=== PATIENT | female | born 1985 | race Caucasian/White ===

== ENCOUNTER → 2016-10-17 | Outpatient (CLI) | payer OTHER ==
[~2016-10-17] MED LIST: ACET50TA PO; B COCAP PO; DIPH50CA PO; DOCU10ELUD OR; IBUP600T26 OR; MOM30SS OR; OMEG100011 PO; PRENTAB66 PO; VICO5TAB PO
[2016-10-17 17:23] LABS: BASO % 0.3 % (0.0-1.0); EOS # 0.1 K/mm3 (0.0-0.50); EOS % 1.5 % (0.0-3.0); LARGE UNSTAINED CELL # 0.1 K/mm3 (0.0-0.4); LARGE UNSTAINED CELL % 2.1 % (0.0-4.0); LYMPH # 1.2 K/mm3 (1.5-4.5); LYMPH % 18.4 % (24.0-44.0); MEAN CORPUSCULAR HEMOGLOBIN 31.6 pg (27.0-33.0); MEAN CORPUSCULAR VOLUME 90.5 fl (80.0-96.0); MONO # 0.3 K/mm3 (0.0-0.8); NEUTROPHILS # 4.7 K/mm3 (1.8-7.7); NEUTROPHILS % 72.8 % (36.0-66.0); PLATELET COUNT, AUTOMATED 136 k/mm3 (150-450); RED CELL DISTRIBUTION WIDTH 12.1 % (11.5-14.5); WHITE BLOOD COUNT 6.5 K/mm3 (4.0-10.0)
[2016-10-18 10:20] LABS: HBsAg Prenatal NEGATIVE (NEGATIVE)
== END ==
LOC: M SMT 13:54
PROVIDERS: ATTEND Advanced Practice Midwife
DX: Z34.81 Encounter for supervision of other normal pregnancy, first trimester (principal)

== ENCOUNTER → 2016-12-04 | Outpatient (CLI) | payer OTHER ==
--- NOTE | 2016-12-04 13:07 | REP ---
Obstetric ultrasound for anatomy: There is a single intrauterine gestation. position is variable. There is motion. heart rate is 160 beats per minute. The placenta is anterior. There is no placenta previa or abruptio. The placenta demonstrates grade 0 maturity. Subjectively the amniotic fluid volume is normal. The cervix measures 3.2 cm length. The maternal adnexa and cul-de-sac are unremarkable. By the today's ultrasound the gestational age is 19 weeks 3 days with an JULY of 04/27/2017. By LMP gestational age is 19 weeks 0 days. weight is 308 grams (0 pounds, 10 ounces). This is the 74th percentile for 19 weeks 0 days. The following anatomic structures are identified and are unremarkable: cranium, choroid plexus, cavum septum pellucidum, cerebellum, cisterna magna, facial profile, lungs, four-chamber heart, cardiac right and left ventricular outflow tracts, diaphragm, stomach, cord insertion, three-vessel cord, kidneys, bladder, spine and upper lower extremities. No anomalies are identified. Signed by Carlos Pop MD 12/04/2016 12:58 P
== END ==
LOC: M SMT 11:18
PROVIDERS: ATTEND Specialist
DX: Z34.82 Encounter for supervision of other normal pregnancy, second trimester (principal); Z36 Encounter for antenatal screening of mother; Z3A.19 19 weeks gestation of pregnancy

== ENCOUNTER → 2017-01-22 | Outpatient (CLI) | payer MEDICAID, OTHER ==
[2017-01-22 14:20] LABS: MEAN CORPUSCULAR HEMOGLOBIN 32.7 pg (27.0-33.0); MEAN CORPUSCULAR HGB CONC 34.6 g/dl (32.0-36.5); MEAN CORPUSCULAR VOLUME 94.6 fl (80.0-96.0); RED CELL DISTRIBUTION WIDTH 13.1 % (11.5-14.5); WHITE BLOOD COUNT 6.2 K/mm3 (4.0-10.0)
== END ==
LOC: M SMT 10:45
PROVIDERS: ATTEND Obstetrics & Gynecology
DX: Z34.82 Encounter for supervision of other normal pregnancy, second trimester (principal); Z36 Encounter for antenatal screening of mother; Z3A.00 Weeks of gestation of pregnancy not specified

== ENCOUNTER → 2017-04-03 | Outpatient (CLI) | payer OTHER, MEDICAID ==
[2017-04-03 12:56] LABS: MEAN CORPUSCULAR HEMOGLOBIN 31.8 pg (27.0-33.0); MEAN CORPUSCULAR HGB CONC 33.3 g/dl (32.0-36.5); MEAN CORPUSCULAR VOLUME 95.5 fl (80.0-96.0); RED CELL DISTRIBUTION WIDTH 13.4 % (11.5-14.5); WHITE BLOOD COUNT 10.2 10^3/uL (4.0-10.0)
[2017-04-03 13:03] LABS: PLATELET COUNT, AUTOMATED 96 10^3/uL (150-450)
[2017-04-03 13:05] LABS: PLATELET F 96
== END ==
LOC: M SMT 10:16
PROVIDERS: ATTEND Obstetrics & Gynecology
DX: Z34.83 Encounter for supervision of other normal pregnancy, third trimester (principal)

== ENCOUNTER 2017-05-02 22:51 | Inpatient (IN) | payer MEDICAID, OTHER ==
[~2017-05-02] VITALS: Ht 165.1 cm; Wt 73.0 kg
[2017-05-02] MEDS ORDERED: OXYTOCIN 30 UNITS IN 0.9% NaCl 500ML IV BAG (J2590) As Ordered ONE (22:56)
[2017-05-02 22:59] VITALS: BP 108/60
[2017-05-02 23:22] LABS: MEAN CORPUSCULAR HEMOGLOBIN 31.8 pg (27.0-33.0); MEAN CORPUSCULAR HGB CONC 34.8 g/dl (32.0-36.5); MEAN CORPUSCULAR VOLUME 91.3 fl (80.0-96.0); RED CELL DISTRIBUTION WIDTH 13.6 % (11.5-14.5); WHITE BLOOD COUNT 7.5 10^3/uL (4.0-10.0)
[2017-05-02 23:43] LABS: PLATELET COUNT, AUTOMATED 79 10^3/uL (150-450)
[2017-05-02 23:44] LABS: IMMATURE PLATELET FRACTION % 16.7 % (0.0-9.6)
[2017-05-03] VITALS (7 sets, daily range): BP systolic 109–128; BP diastolic 57–75
[2017-05-03 01:20] LABS: CORD GAS ABE A -0.7; CORD GAS HCO3 A 25.6 MEQ/L; CORD GAS PH A 7.345 UNITS; CORD GAS PO2 A 19.5 mmHg; CORD GAS TCO2 A 27.1 MEQ/L
[2017-05-03 01:21] LABS: CORD GAS O2 SAT A 41.3 %; CORD GAS SBC A 22.4 MEQ/L
[2017-05-03 01:22] LABS: CORD GAS PCO2 V 36.7 mmHg; CORD GAS PH V 7.405 UNITS
[2017-05-03 01:23] LABS: CORD GAS ABE V -1.6; CORD GAS HCO3 V 22.5 MEQ/L; CORD GAS O2 SAT V 72.4 %; CORD GAS PO2 V 27.4 mmHg; CORD GAS SBC V 22.4 MEQ/L; CORD GAS TCO2 V 23.6 MEQ/L
[2017-05-03] MEDS ORDERED: OXYTOCIN DRIP 30 UNITS in APPROPRIATE DILUENT 1 EA IV SCH (01:33)
[2017-05-03] MEDS ORDERED: LIDOCAINE 1% MDV INJ 50 ML VIAL INFIL ONE (01:45)
[2017-05-03] MEDS ORDERED: METHYLERGONOVINE MALEATE 0.2 MG TAB PO PRN (01:45)
[2017-05-03] MEDS ORDERED: ANUSOL HC CREAM 30GM TOP PRN (01:45)
[2017-05-03] MEDS ORDERED: MEASLES,MUMPS,RUBELLA VACCINE INJ (MMR-II) (90707) SC SCH (01:45)
[2017-05-03] MEDS ORDERED: MOM 30ML SUSPENSION UDC PO PRN (01:45)
[2017-05-03] MEDS ORDERED: DIBUCAINE 1% OINTMENT 30GM TOP PRN (01:45)
[2017-05-03] MEDS ORDERED: ACETAMINOPHEN 500 MG TAB PO PRN (01:45)
[2017-05-03] MEDS ORDERED: DOCUSATE SODIUM 100 MG CAP PO PRN (01:45)
[2017-05-03] MEDS ORDERED: RHOGAM 300 MCG (1500 IU) INJ (J2790) IM SCH (01:45)
[2017-05-03] MEDS ORDERED: IBUPROFEN 800 MG TAB PO PRN (01:45)
[2017-05-03] MEDS ORDERED: PERCOCET 5MG/325MG TAB PO PRN (07:00)
[2017-05-03] MEDS ORDERED: oxyCODONE 10 MG CR TAB PO ONE (08:00)
[2017-05-03] MEDS: PRENATAL VITAMINS CHEWABLE TABLET PO SCH (08:19)
--- NOTE | 2017-05-03 08:45 | HPE ---
DATE OF ADMISSION: 05/02/2017 REASON FOR ADMISSION: Labor. HISTORY OF THE PRESENT ILLNESS: Mrs. Sanford is a 31-year-old 3, para 2 who presents at 40 weeks 2 days estimated gestational age by last menstrual period, confirmed by first trimester ultrasound, with complaints of contractions. She reports contractions throughout the late evening and increasing in intensity and frequency. She reports active movements. Denies any vaginal bleeding or leakage of fluid. Her course has been unremarkable. She initiated care in the first trimester and has been appropriate throughout. PAST MEDICAL HISTORY: None. PAST SURGICAL HISTORY: None. PAST OBSTETRICAL HISTORY: She is 3, para 2. She has had two term vaginal deliveries, proven to 9 pounds 14 ounces. LABORATORY: Her labs - she is O+, antibody screen is negative, rubella is immune, RPR is nonreactive, hepatitis surface antigen is negative. HIV is negative. Hepatitis C is nonreactive. Chlamydia and gonorrhea screens are negative. She had a normal 1-hour Glucola. She is GBS negative. PHYSICAL EXAMINATION: Vital signs are stable. She is afebrile. General appearance is well appearing. No acute distress. Her lungs are clear to auscultation bilaterally. Cardiovascular: Heart regular rate and rhythm. Her abdomen is gravid, tender. Estimated weight 4000 grams. Cervical Exam: She is 6 cm dilated, 90% effaced, -2 station. ASSESSMENT: 1. Mrs. Sanford is a 31-year-old 3, para 2 at 40 weeks 2 days estimated gestational age, in active labor. 2. Reassuring status. PLAN: 1. Admit to labor and delivery. CBC, RPR, type and screen, urine toxicology screen. 2. Anticipate spontaneous vaginal delivery.
--- NOTE | 2017-05-03 09:53 | DN ---
DATE: 05/03/2017 TIME OF : 0057 hours GENDER: Male. SCORES: 7 and 9. WEIGHT: 4870 grams or 10 pounds 12 ounces. ESTIMATED BLOOD LOSS: 300 mL. ANESTHESIA: None. LACERATION: First-degree midline laceration. COUNTS: Five laparotomy sponges accounted for prior to and after delivery, five sharps removed from the delivery field. CORD GASES: 7.34, 7.40, base excess of -0.7, -1.6 respectively. COMPLICATIONS: Mild shoulder dystocia, approximately 30-45 seconds, alleviated with Wander and suprapubic pressure. DELIVERY NOTE: On 05/03/2017, at 0057 hours, Mrs. Sanford, a 31-year-old 3, now para 3 had a spontaneous vaginal delivery of a live born male infant. scores 7 and 9. Weight was 10 pounds 12 ounces or 4870 grams. At 0055 hours, head was delivered right occiput anterior (JOSE RAFAEL). I then attempted to deliver the left anterior shoulder with gentle downward traction and was unsuccessful. Wander maneuver was then deployed as well as suprapubic pressure, alleviating the left anterior shoulder. This was followed by the right posterior shoulder and corpus. Time of was 0057 hours. Cord was clamped times two and was cut, and the was taken over to the warmer where Dr. White, Roundhouse Worker, awaited. Cord gases were then obtained. Placenta was then drained and delivered grossly intact. A premixed bag of 500 mL of normal saline with 30 units of Pitocin was then bolused along with uterine massage. The uterus was firm. On inspection, there was a first-degree midline laceration, which was repaired with #3-0 Vicryl Rapide. On re-inspection, cervix, vagina and perineum were grossly intact and hemostatic. Mom and baby recovering in stable condition.
[2017-05-03] MEDS: KETOROLAC 30 MG/ML VIAL (J1885) IV SCH ×3 (11:09→23:40)
[2017-05-03] MEDS ORDERED: oxyCODONE 5MG TAB PO ONE (15:00)
[2017-05-04] MEDS: KETOROLAC 30 MG/ML VIAL (J1885) IV SCH (06:00)
[2017-05-04 06:02] VITALS: BP 116/74
[2017-05-04] MEDS ORDERED: TYLE325T5 PO (08:41)
[2017-05-04] MEDS ORDERED: MOTR200T44 PO (08:41)
[2017-05-04] MEDS ORDERED: COLA100C5 PO (08:41)
[2017-05-04] MEDS: PRENATAL VITAMINS CHEWABLE TABLET PO SCH (09:01)
== END 2017-05-04 11:40 | disposition home or self-care (01) | DRG 560 ==
LOC: M LDO 22:51 → M LDI 22:57 → M OBS 05-03 04:05
PROVIDERS: ADMIT Obstetrics & Gynecology; ATTEND Obstetrics & Gynecology
PROC: 10E0XZZ Delivery of Products of Conception, External Approach (ICD-10-PCS; principal; 2017-05-03)
PROC: 0HQ9XZZ Repair Perineum Skin, External Approach (ICD-10-PCS; 2017-05-03)
DX: O48.0 Post-term pregnancy (principal); O66.0 Obstructed labor due to shoulder dystocia; Z37.0 Single live birth; Z3A.40 40 weeks gestation of pregnancy; O70.0 First degree perineal laceration during delivery

== ENCOUNTER → 2018-04-02 | Outpatient (CLI) | payer OTHER ==
[2018-04-02 15:20] LABS: BASO % 0.5 % (0.0-1.0); EOS # 0.1 10^3/uL (0.0-0.50); EOS % 1.3 % (0.0-3.0); HEMOGLOBIN 13.8 g/dl (12.0-15.5); IMMATURE GRANULOCYTE % 0.2 % (0-3.0); LYMPH # 1.2 10^3/uL (1.5-4.5); LYMPH % 19.3 % (24.0-44.0); MEAN CORPUSCULAR HGB CONC 32.9 g/dl (32.0-36.5); MEAN CORPUSCULAR VOLUME 91.3 fl (80.0-96.0); MONO # 0.4 10^3/uL (0.0-0.8); MONO % 6.8 % (0.0-5.0); NEUTROPHILS # 4.4 10^3/uL (1.8-7.7); NEUTROPHILS % 71.9 % (36.0-66.0); PLATELET COUNT, AUTOMATED 158 10^3/uL (150-450); RED CELL DISTRIBUTION WIDTH 11.6 % (11.5-14.5); WHITE BLOOD COUNT 6.1 10^3/uL (4.0-10.0)
[2018-04-02 15:21] LABS: ALKALINE PHOSPHATASE 73 U/L (45-117); ALT/SGPT 16 U/L (12-78); ANION GAP 6 MEQ/L (8-16); AST/SGOT 13 U/L (7-37); BILIRUBIN,TOTAL 0.3 MG/DL (0.2-1.0); BLOOD UREA NITROGEN 12 MG/DL (7-18); CALCIUM LEVEL 8.7 MG/DL (8.5-10.1); CARBON DIOXIDE LEVEL 29 MEQ/L (21-32); CHLORIDE LEVEL 106 MEQ/L (98-107); CREATININE FOR GFR 0.67 MG/DL (0.55-1.30); GLOMERULAR FILTRATION RATE > 60.0 (>60); GLUCOSE, FASTING 89 MG/DL (70-100); POTASSIUM SERUM 4.6 MEQ/L (3.5-5.1); SODIUM LEVEL 141 MEQ/L (136-145)
[2018-04-02 15:22] LABS: ALBUMIN 3.6 GM/DL (3.2-5.2); ALBUMIN/GLOBULIN RATIO 1.03 (1.00-1.93); CHOLESTEROL LEVEL 160 MG/DL (<200); HDL CHOLESTEROL 43 MG/DL (>40); LDL CHOLESTEROL 102 MG/DL (<100); NON-HDL-C 117 MG/DL; TOTAL PROTEIN 7.1 GM/DL (6.4-8.2); TRIGLYCERIDES LEVEL 75 MG/DL (<150)
== END ==
LOC: M SMT 08:24
DX: Z00.00 Encounter for general adult medical examination without abnormal findings (principal); Z13.0 Encounter for screening for diseases of the blood and blood-forming organs and certain disorders involving the immune mechanism; Z13.1 Encounter for screening for diabetes mellitus; Z13.220 Encounter for screening for lipoid disorders
CPT/HCPCS: 80053

== ENCOUNTER → 2018-04-29 | Outpatient (CLI) | payer OTHER ==
[2018-04-29 13:35] LABS: BASO % 0.6 % (0.0-1.0); EOS # 0.2 10^3/uL (0.0-0.50); EOS % 3.3 % (0.0-3.0); HEMATOCRIT 42.9 % (36.0-47.0); IMMATURE GRANULOCYTE % 0.2 % (0-3.0); LYMPH # 1.1 10^3/uL (1.5-4.5); LYMPH % 19.8 % (24.0-44.0); MEAN CORPUSCULAR HGB CONC 32.6 g/dl (32.0-36.5); MEAN CORPUSCULAR VOLUME 91.9 fl (80.0-96.0); MONO # 0.4 10^3/uL (0.0-0.8); MONO % 6.7 % (0.0-5.0); NEUTROPHILS # 3.8 10^3/uL (1.8-7.7); NEUTROPHILS % 69.4 % (36.0-66.0); PLATELET COUNT, AUTOMATED 164 10^3/uL (150-450); RED BLOOD COUNT 4.67 10^6/uL (4.00-5.40); RED CELL DISTRIBUTION WIDTH 11.9 % (11.5-14.5); WHITE BLOOD COUNT 5.4 10^3/uL (4.0-10.0)
[2018-04-29 14:29] LABS: ERYTHROCYTE SEDIMENTATION RATE 5 mm/hr (0-20)
[2018-04-29 14:49] LABS: RHEUMATOID FACTOR QUANT < 10.0 IU/ML (<15.0); THYROID PEROXIDASE ANTIBODY 253.1 U/ML (<60.0); TOTAL T3 155.2 NG/DL (60.0-181.0)
[2018-04-29 14:49] LABS: THYROXINE (T4) 12.8 UG/DL (4.5-12.0)
== END ==
LOC: M SMT 09:17
DX: L50.1 Idiopathic urticaria (principal); L50.3 Dermatographic urticaria
CPT/HCPCS: 84443

== ENCOUNTER → 2018-06-10 | Outpatient (CLI) | payer OTHER ==
[~2018-06-10] MED LIST changes: +COLA100C5 PO; +MOTR200T44 PO; +TYLE325T5 PO
[2018-06-10 13:35] LABS: BASO # 0.1 10^3/uL (0.0-0.2); EOS # 0.2 10^3/uL (0.0-0.50); EOS % 3.2 % (0.0-3.0); HEMATOCRIT 42.9 % (36.0-47.0); HEMOGLOBIN 14.2 g/dl (12.0-15.5); LYMPH % 19.9 % (24.0-44.0); MEAN CORPUSCULAR HEMOGLOBIN 30.1 pg (27.0-33.0); MEAN CORPUSCULAR HGB CONC 33.1 g/dl (32.0-36.5); MEAN CORPUSCULAR VOLUME 90.9 fl (80.0-96.0); MONO # 0.4 10^3/uL (0.0-0.8); MONO % 8.7 % (0.0-5.0); NEUTROPHILS # 3.3 10^3/uL (1.8-7.7); PLATELET COUNT, AUTOMATED 156 10^3/uL (150-450); RED BLOOD COUNT 4.72 10^6/uL (4.00-5.40); WHITE BLOOD COUNT 4.9 10^3/uL (4.0-10.0)
[2018-06-10 13:52] LABS: FREE T4 1.09 NG/DL (0.76-1.46); THYROID STIMULATING HORMONE 2.16 uIU/ML (0.358-3.740)
[2018-06-10 14:42] LABS: THYROID PEROXIDASE ANTIBODY 211.9 U/ML (<60.0)
[2018-06-15 14:49] LABS: T3 RESIN UPTAKE 22 % (24-39); THRYOGLOBULIN ANTIBODIES (ATA) 10.4 IU/mL (0.0-0.9)
== END ==
LOC: M SMT 10:10
PROVIDERS: ATTEND Physician Assistant
DX: Z13.29 Encounter for screening for other suspected endocrine disorder (principal)

== ENCOUNTER → 2018-06-10 | Outpatient (REF) | payer OTHER ==
[2018-06-12 14:42] LABS: HPV HYBRID CAPTURE II Negative (Negative)
== END ==
LOC: M LAB REF 13:39
PROVIDERS: ATTEND Advanced Practice Midwife
DX: Z12.4 Encounter for screening for malignant neoplasm of cervix (principal)

== ENCOUNTER → 2018-06-25 | Outpatient (CLI) | payer OTHER | LOC: M LAB 07:57 | PROVIDERS: ATTEND Advanced Practice Midwife | DX: Z83.3 Family history of diabetes mellitus (principal) ==

== ENCOUNTER → 2018-09-21 | Outpatient (CLI) | payer OTHER ==
[~2018-09-21] MED LIST changes: -ACET50TA PO; -DOCU10ELUD OR; +DOCU5LIQ OR; +MAPA500T17 PO
== END ==
LOC: M LAB 09:18
PROVIDERS: ATTEND Advanced Practice Midwife
DX: O20.0 Threatened abortion (principal); Z3A.00 Weeks of gestation of pregnancy not specified

== ENCOUNTER → 2018-09-23 | Outpatient (CLI) | payer OTHER | LOC: M LAB 09:12 | PROVIDERS: ATTEND Advanced Practice Midwife | DX: O20.0 Threatened abortion (principal); Z3A.00 Weeks of gestation of pregnancy not specified ==

== ENCOUNTER → 2018-10-29 | Outpatient (CLI) | payer OTHER ==
[2018-10-29 13:28] LABS: BASO % 0.7 % (0.0-1.0); EOS % 0.7 % (0.0-3.0); HEMATOCRIT 40.8 % (36.0-47.0); HEMOGLOBIN 13.9 g/dl (12.0-15.5); LYMPH % 17.1 % (24.0-44.0); MEAN CORPUSCULAR HEMOGLOBIN 31.3 pg (27.0-33.0); MEAN CORPUSCULAR HGB CONC 34.1 g/dl (32.0-36.5); MEAN CORPUSCULAR VOLUME 91.9 fl (80.0-96.0); MONO # 0.4 10^3/uL (0.0-0.8); MONO % 6.6 % (0.0-5.0); NEUTROPHILS # 4.4 10^3/uL (1.8-7.7); NEUTROPHILS % 74.6 % (36.0-66.0); PLATELET COUNT, AUTOMATED 129 10^3/uL (150-450); RED BLOOD COUNT 4.44 10^6/uL (4.00-5.40); WHITE BLOOD COUNT 5.9 10^3/uL (4.0-10.0)
[2018-10-29 16:58] LABS: CHLAMYDIA DNA AMPLIFICATION NEGATIVE (NEGATIVE); GC DNA AMPLIFICATION NEGATIVE (NEGATIVE)
[2018-10-30 12:18] LABS: HEPATITIS C VIRUS ABY INDEX < 0.0 INDEX (<0.8); HIV 1&2 SCREEN CENTAUR NEGATIVE (NEGATIVE); RUBELLA IgG QUALITATIVE IMMUNE (IMMUNE)
== END ==
LOC: M SMT 09:39
PROVIDERS: ATTEND Obstetrics & Gynecology
DX: Z34.81 Encounter for supervision of other normal pregnancy, first trimester (principal); Z3A.09 9 weeks gestation of pregnancy

== ENCOUNTER → 2018-12-14 | Outpatient (CLI) | payer OTHER ==
--- NOTE | 2018-12-14 11:22 | REP ---
Clinical: Anatomical evaluation. Comparison: None . Findings: Examination demonstrates a single live intrauterine in cephalic presentation. motion is identified by technologist. Placenta is noted posterior/left lateral and grade zero without evidence for placenta previa or abruption. Amniotic fluid volume is normal. Cervix measures 4.8 cm in length and appears closed. No evidence for nuchal cord. Gestational age by LMP 17 weeks 6 days with JULY 05/18/2019 . Gestational age by current measurements 18 weeks 2 days with JULY 05/15/2019 . FHR equals 139 beats per minute. BPD 4.0 cm 18 weeks 1 day HC 14.7 cm 17 weeks 6 days AC 12.8 cm 18 weeks 3 days FL 2.5 cm 17 weeks 5 days HL 2.5 cm 17 weeks 6 days HC/AC ratio 1.15 Estimated weight 222 grams ( 52nd percentile). Anatomical assessment demonstrates normal structures including cranium, choroid plexus, cavum, cerebellum/posterior fossa, facial features, lungs, four-chamber heart/ventricular outflow tracts, diaphragm, stomach, cord insertion/three-vessel cord, kidneys/bladder, spine, and extremities. Impression: Single live intrauterine in cephalic presentation demonstrating appropriate interval growth. Anatomical assessment is complete and normal. No gross abnormalities are identified. Electronically Signed by Meir Moser MD 12/14/2018 11:13 A
== END ==
LOC: M RAD 10:12
PROVIDERS: ATTEND Advanced Practice Midwife
DX: Z36.9 Encounter for antenatal screening, unspecified (principal); Z3A.18 18 weeks gestation of pregnancy

== ENCOUNTER → 2019-02-25 | Outpatient (CLI) | payer OTHER ==
[2019-02-25 11:54] LABS: HEMATOCRIT 34.6 % (36.0-47.0); HEMOGLOBIN 11.7 g/dl (12.0-15.5); MEAN CORPUSCULAR HEMOGLOBIN 32.6 pg (27.0-33.0); MEAN CORPUSCULAR HGB CONC 33.8 g/dl (32.0-36.5); MEAN CORPUSCULAR VOLUME 96.4 fl (80.0-96.0); RED BLOOD COUNT 3.59 10^6/uL (4.00-5.40); WHITE BLOOD COUNT 8.2 10^3/uL (4.0-10.0)
[2019-02-25 12:23] LABS: PLATELET COUNT, AUTOMATED 87 10^3/uL (150-450)
== END ==
LOC: M LAB 10:03
PROVIDERS: ATTEND Advanced Practice Midwife
DX: O99.89 Other specified diseases and conditions complicating pregnancy, childbirth and the puerperium (principal); Z3A.00 Weeks of gestation of pregnancy not specified

== ENCOUNTER → 2019-04-12 | Outpatient (CLI) | payer OTHER ==
[2019-04-12 13:15] LABS: HEMATOCRIT 37.2 % (36.0-47.0); HEMOGLOBIN 12.1 g/dl (12.0-15.5); MEAN CORPUSCULAR HEMOGLOBIN 31.8 pg (27.0-33.0); MEAN CORPUSCULAR HGB CONC 32.5 g/dl (32.0-36.5); MEAN CORPUSCULAR VOLUME 97.6 fl (80.0-96.0); RED BLOOD COUNT 3.81 10^6/uL (4.00-5.40); WHITE BLOOD COUNT 9.7 10^3/uL (4.0-10.0)
[2019-04-12 13:40] LABS: PLATELET COUNT, AUTOMATED 85 10^3/uL (150-450)
== END ==
LOC: M SMT 10:01 → M PLALAB 10:01
PROVIDERS: ATTEND Advanced Practice Midwife
DX: D69.6 Thrombocytopenia, unspecified (principal)

== ENCOUNTER → 2019-04-20 | Outpatient (REF) | payer OTHER | LOC: M SMT 13:19 | PROVIDERS: ATTEND Advanced Practice Midwife | DX: Z34.93 Encounter for supervision of normal pregnancy, unspecified, third trimester (principal) ==

== ENCOUNTER → 2019-04-21 | Outpatient (CLI) | payer OTHER | LOC: M PLALAB 14:42 | PROVIDERS: ATTEND Advanced Practice Midwife | DX: Z34.93 Encounter for supervision of normal pregnancy, unspecified, third trimester (principal) ==

== ENCOUNTER → 2019-04-29 | Outpatient (CLI) | payer OTHER ==
[~2019-04-29] MED LIST changes: +PRED1TABL PO; +PRENTAB55 PO
[2019-04-29 18:33] LABS: HEMATOCRIT 39.3 % (36.0-47.0); MEAN CORPUSCULAR HEMOGLOBIN 31.9 pg (27.0-33.0); MEAN CORPUSCULAR HGB CONC 33.1 g/dl (32.0-36.5); MEAN CORPUSCULAR VOLUME 96.6 fl (80.0-96.0); PLATELET COUNT, AUTOMATED 108 10^3/uL (150-450); RED BLOOD COUNT 4.07 10^6/uL (4.00-5.40); WHITE BLOOD COUNT 12.5 10^3/uL (4.0-10.0)
== END ==
LOC: M PLALAB 13:07
PROVIDERS: ATTEND Specialist
DX: D69.3 Immune thrombocytopenic purpura (principal)

== ENCOUNTER 2019-05-12 17:41 | Inpatient (IN) | payer OTHER ==
[~2019-05-12] VITALS: Ht 165.1 cm; Wt 75.3 kg
[2019-05-12 17:52] VITALS: BP 135/83
[2019-05-12] MEDS ORDERED: LR 1,000 ML IV SCH ×3 (18:15→22:45)
[2019-05-12] MEDS ORDERED: LACTATED RINGER'S 1000 ML IV ONE (18:15)
[2019-05-12 18:31] LABS: HEMATOCRIT 40.3 % (36.0-47.0); HEMOGLOBIN 13.2 g/dl (12.0-15.5); MEAN CORPUSCULAR HGB CONC 32.8 g/dl (32.0-36.5); MEAN CORPUSCULAR VOLUME 94.6 fl (80.0-96.0); RED BLOOD COUNT 4.26 10^6/uL (4.00-5.40); WHITE BLOOD COUNT 10.6 10^3/uL (4.0-10.0)
[2019-05-12 18:46] LABS: PLATELET COUNT, AUTOMATED 61 10^3/uL (150-450)
[2019-05-12 19:20] VITALS: BP 119/75
[2019-05-12 21:12] VITALS: BP 113/75
[2019-05-12] MEDS ORDERED: ceFAZolin SOD 2 GM in IV 1 EA IV ONE (21:30)
[2019-05-12] MEDS ORDERED: BICITRA 30ML SOLN UDC PO ONE (21:30)
[2019-05-12] MEDS ORDERED: ceFAZolin 2 GM/D5W 50 ML IV BAG (J0690 PER 500MG) As Ordered ONE (21:31)
[2019-05-12] MEDS ORDERED: BICITRA 30ML SOLN UDC As Ordered ONE (21:32)
[2019-05-12] MEDS ORDERED: KETOROLAC 60 MG/2 ML VIAL (J1885) As Ordered ONE (21:37)
[2019-05-12] MEDS ORDERED: propofoL 200 MG/20 ML VIAL As Ordered ONE (21:37)
[2019-05-12] MEDS ORDERED: fentaNYL 100 MCG/2 ML INJECTION (J3010) As Ordered ONE ×3 (21:37→23:16)
[2019-05-12] MEDS ORDERED: MIDAZOLAM INJ 2 MG/2 ML VIAL (J2250) As Ordered ONE (21:37)
[2019-05-12] MEDS ORDERED: OXYTOCIN INJ 10 UNITS/ML VIAL (J2590) As Ordered ONE (21:37)
[2019-05-12] MEDS ORDERED: ONDANSETRON 4MG/2ML VIAL (J2405) As Ordered ONE (21:37)
[2019-05-12] MEDS ORDERED: dexameTHASONE 4 MG/ML 1ML VIAL (J1100) As Ordered ONE (21:37)
[2019-05-12] MEDS ORDERED: SUCCINYLCHOLINE 100 MG/5 ML SYRINGE (J0330) As Ordered ONE (21:37)
[2019-05-12] MEDS ORDERED: LIDOCAINE 2% INJ 100 MG/5 ML SDV (FOR ANES.) As Ordered ONE (21:37)
[2019-05-12] MEDS ORDERED: ePHEDrine SULFATE 25 MG/5 ML(5MG/ML) SYRINGE As Ordered ONE (22:04)
[2019-05-12] MEDS ORDERED: PHENYLephrine HCL 500 MCG/5 ML (100MCG/ML) SYRINGE (J2370) As Ordered ONE (22:04)
[2019-05-12 22:23] LABS: CORD GAS ABE A -0.5; CORD GAS O2 SAT A 53.1 %; CORD GAS PCO2 A 49.7 mmHg; CORD GAS PH A 7.337 UNITS; CORD GAS PO2 A 22.6 mmHg; CORD GAS TCO2 A 27.6 MEQ/L
[2019-05-12 22:24] LABS: CORD GAS ABE V -3.1; CORD GAS HCO3 V 22.2 MEQ/L; CORD GAS O2 SAT V 79.5 %; CORD GAS PCO2 V 40.6 mmHg; CORD GAS PH V 7.356 UNITS; CORD GAS PO2 V 34.3 mmHg; CORD GAS SBC V 21.5 MEQ/L; CORD GAS TCO2 V 23.5 MEQ/L
[2019-05-12] MEDS ORDERED: OXYTOCIN DRIP 30 UNITS in IV 1 EA IV SCH (22:38)
[2019-05-12] MEDS ORDERED: KETOROLAC 30 MG/ML VIAL (J1885) IV PRN (22:45)
[2019-05-12] MEDS ORDERED: METOCLOPRAMIDE INJ 10MG/2ML VIAL (J2765) IV PRN (22:45)
[2019-05-12] MEDS ORDERED: MEPERIDINE INJ 25 MG/ML VIAL (J2175) IV PRN (22:45)
[2019-05-12] MEDS ORDERED: ONDANSETRON 4MG/2ML VIAL (J2405) IV PRN (22:45)
[2019-05-12] MEDS ORDERED: ONDANSETRON 4 MG TAB (S0181) PO PRN (22:45)
[2019-05-12] MEDS ORDERED: PERCOCET 5MG/325MG TAB PO PRN ×2 (22:45)
[2019-05-12] MEDS ORDERED: MOM 30ML SUSPENSION UDC PO PRN (22:45)
[2019-05-12] MEDS ORDERED: MEASLES,MUMPS,RUBELLA VACCINE INJ (MMR-II) (90707) SC SCH (22:45)
[2019-05-12] MEDS ORDERED: RHOGAM 300 MCG (1500 IU) INJ (J2790) IM SCH (22:45)
[2019-05-12] MEDS: PERCOCET 5MG/325MG TAB PO PRN ×2 (22:55→23:27)
[2019-05-12] MEDS: fentaNYL 100 MCG/2 ML INJECTION (J3010) IV PRN ×6 (22:57→23:25)
[2019-05-12] MEDS ORDERED: PERCOCET 5MG/325MG TAB As Ordered ONE ×2 (22:57→23:27)
[2019-05-12] MEDS ORDERED: OXYTOCIN 30 UNITS IN 0.9% NaCl 500ML IV BAG (J2590) As Ordered ONE (23:05)
[2019-05-13] VITALS (8 sets, daily range): BP systolic 102–123; BP diastolic 61–76
[2019-05-13] MEDS: KETOROLAC 30 MG/ML VIAL (J1885) IV SCH ×3 (03:23→15:46)
[2019-05-13 06:33] LABS: HEMATOCRIT 31.1 % (36.0-47.0); MEAN CORPUSCULAR HEMOGLOBIN 31.5 pg (27.0-33.0); MEAN CORPUSCULAR HGB CONC 33.1 g/dl (32.0-36.5); MEAN CORPUSCULAR VOLUME 95.1 fl (80.0-96.0); RED BLOOD COUNT 3.27 10^6/uL (4.00-5.40); WHITE BLOOD COUNT 14.8 10^3/uL (4.0-10.0)
[2019-05-13 06:34] LABS: PLATELET COUNT, AUTOMATED 74 10^3/uL (150-450)
[2019-05-13 06:35] LABS: HEMOGLOBIN 10.3 g/dl (12.0-15.5)
--- NOTE | 2019-05-13 06:55 | HPE ---
DATE OF ADMISSION: 05/12/2019 Laury is a 33-year-old female 4, para 3-0-0-3 with an estimated date of confinement (EDC) of 05/18/2019, estimated gestational age (EGA) 39-1/7 weeks gestation who was scheduled for a section in a couple of days due to a history of traumatic prior . She has a history of shoulder dystocia with large babies and broken tail bones. She presented to labor and delivery with complaints of contractions every 3-4 minutes for the last few hours. Upon evaluation she was found to be in active labor. The patient wanted to proceed with the section. She also was scheduled for tubal ligation. After extensive counseling a decision was made to proceed with the primary section and bilateral tubal ligation. Her records were reviewed, which were essentially unremarkable. LABS: Blood type is O positive. Rubella immune. Hepatitis negative. HIV negative. GC and chlamydia negative. 1-hour sugar testing was within normal limits. Group B Streptococcus (GBS) negative. The patient has a history of thrombocytopenia with her . She did receive steroids a few weeks ago. However, on admission today her platelets are 61. PAST MEDICAL HISTORY: Significant for thrombocytopenia. PAST SURGICAL HISTORY: Denies. SOCIAL HISTORY: Denies any alcohol, drugs or cigarette smoking. REVIEW OF SYSTEMS: Unremarkable. MEDICATIONS: - vitamin ALLERGIES: No known drug allergies. PHYSICAL EXAM ON ADMISSION: HEENT: Grossly within normal limits. ABDOMEN: Soft, nontender, nondistended. EXTREMITIES: No clubbing, cyanosis or edema. VAGINAL EXAM: 4-5 cm dilated, 80% effaced, fetus at -2 station in vertex position. Tracing reviewed, category 1 tracing. ASSESSMENT: 1. Intrauterine at 39-1/7 weeks gestation in active labor. 2. History of prior traumatic for elective primary section. 3. Multiparity, desires permanent tubal sterilization. 4. History of thrombocytopenia with a platelet count of 61. PLAN: Admit to labor and delivery. Routine labs sent. The patient counseled extensively. A decision was made to proceed with the primary section and bilateral tubal ligation. Risk of bleeding also discussed with the patient including possible need for transfusion and/or hysterectomy.
[2019-05-13] MEDS: PRENATAL VITAMINS CHEWABLE TABLET PO SCH (09:00)
[2019-05-13] MEDS: DOCUSATE SODIUM 100 MG CAP PO SCH ×3 (09:00→21:51)
[2019-05-13] MEDS: NORCO, ANEXSIA 5/325MG TABLET (HYDROcodone/ACETAMINOPHEN) PO PRN ×2 (15:09→21:52)
[2019-05-13] MEDS: CYCLOBENZAPRINE 10 MG TAB PO PRN (16:30)
[2019-05-13] MEDS: MAALOX 30 ML SUSP *UDC PO PRN (16:30)
[2019-05-14] MEDS: CYCLOBENZAPRINE 10 MG TAB PO PRN ×2 (00:32→09:14)
[2019-05-14] MEDS: MAALOX 30 ML SUSP *UDC PO PRN (00:32)
[2019-05-14] MEDS: IBUPROFEN 800 MG TAB PO SCH ×3 (00:32→15:33)
[2019-05-14 01:30] VITALS: BP 106/59
[2019-05-14] MEDS: NORCO, ANEXSIA 5/325MG TABLET (HYDROcodone/ACETAMINOPHEN) PO PRN ×3 (04:17→21:20)
[2019-05-14 05:56] VITALS: BP 101/54
--- NOTE | 2019-05-14 07:41 | IPNPDOC ---
Text Note Date of Service The patient was seen on 05/14/19. NOTE POD #1 Feels well. Musculoskeletal neck pain is resolving with flexeril, rest and K pad. . Voiding VSS, afebrile, normotensive Breasts soft Fundus firm, NT Dressing removed. Steristrips intact, wound clean, dry and well approximated without s/s infection or dehiscence. Lochia rubra scant without odor POD #1 Routine care. Anticipate D/C in am VS,Fishbone, I+O VS, Fishbone, I+O Vital Signs Date Time Temp Pulse Resp B/P (MAP) Pulse Ox O2 Delivery O2 Flow Rate FiO2 05/14/19 05:56 98.3 83 17 101/54 (70) 100 Room Air I&O- Last 24 Hours up to 6 AM 05/14/19 06:00 Output Total 1350 ml Balance -1350 ml Megan Stewart CNM May 14, 2019 07:41
[2019-05-14] MEDS: DOCUSATE SODIUM 100 MG CAP PO SCH ×2 (08:56→21:18)
[2019-05-14] MEDS: PRENATAL VITAMINS CHEWABLE TABLET PO SCH (08:56)
[2019-05-14 18:02] VITALS: BP 113/67
--- NOTE | 2019-05-14 21:56 | RO ---
DATE OF PROCEDURE: 05/12/2019 Susana is a 33-year-old female, 4, para 3-0-0-3 who was admitted at 39 and 1/7 weeks gestation in active labor. She has a history of prior traumatic , was scheduled for primary section. She also had a history of thrombocytopenia for which she has received steroids. Her current platelet count is 61. Patient is multiparous and also desires permanent tubal sterilization. PREPROCEDURE DIAGNOSES: 1. Intrauterine at 39-1/7 weeks gestation in active labor with history of prior traumatic . 2. History of thrombocytopenia with a platelet count of 61. 3. Multiparity, desires permanent tubal sterilization. POSTPROCEDURE DIAGNOSES: 1. Intrauterine at 39-1/7 weeks gestation in active labor with history of prior traumatic . 2. History of thrombocytopenia with a platelet count of 61. 3. Multiparity, desires permanent tubal sterilization. OPERATIVE PROCEDURE: SURGEON: Jorge Echeverria MD APPLICATIONS CHEMIST: ANESTHESIA: General. COMPLICATIONS: None. ESTIMATED BLOOD LOSS: 600 mL FINDINGS: Live male on occiput transverse position. nine and nine. weight 9 pounds 11 ounces. Normal appearing tubes and ovaries. DESCRIPTION OF PROCEDURE: After counseling with the patient, she was then taken to the operating room where a Alarcon catheter was placed. The patient was then prepped in usual sterile fashion. General anesthesia was done. We then proceed with the section. A Pfannenstiel incision was made. This was carried down to the fascia. Fascia was incised in midline fashion and carried through laterally. Superior aspect of the fascia then grasped with Madeleine clamps, tented off and dissected off the rectus muscles sharply. The inferior aspect was dissected off in a similar fashion. Rectus muscles in midline fashion. Perineum identified. Peritoneal cavity entered bluntly. Superior and inferior dissection of the peritoneum was done with good visualization of the bladder. At this point a Mobius skin retractor was placed, a low-transverse uterine incision was made. Infant was delivered in atraumatic fashion. Nose and mouth bulb suctioned. Cord doubly clamped and cut and infant was handed over to awaiting bobbin stripper. Cord blood and cord gas were sent. Placenta removed manually. Uterus cleared of all clot and debris and the uterine incision was then repaired in two separate layers of #0 Vicryl sutures. At this point attention turned to the fallopian tube where the fimbriated then were identified. Filshie clip was then applied approximately 2 cm away from the cornual area in each tube. Pelvis copiously irrigated with normal saline and suctioned out. Attention turned to the peritoneum which was closed in a running fashion using #2-0 Vicryl. Fascia closed in two separate segment of #0 Vicryl sutures. All superficial bleeders were coagulated and the skin was reapproximated in subcuticular fashion using #3-0 Vicryl on a Eleazar. Steri-Strips placed. The patient tolerated procedure well. She was then transferred to recovery room in stable condition.
[2019-05-15] MEDS: IBUPROFEN 800 MG TAB PO SCH ×2 (00:43→07:57)
[2019-05-15] MEDS: CYCLOBENZAPRINE 10 MG TAB PO PRN (01:04)
[2019-05-15 05:42] VITALS: BP 110/60
[2019-05-15] MEDS ORDERED: NORC1TAB7 PO (07:13)
[2019-05-15] MEDS ORDERED: IBUP80TA PO (07:13)
[2019-05-15] MEDS: PRENATAL VITAMINS CHEWABLE TABLET PO SCH (07:57)
[2019-05-15] MEDS: DOCUSATE SODIUM 100 MG CAP PO SCH (07:57)
--- NOTE | 2019-05-15 19:01 | DSES ---
DATE OF ADMISSION: 05/12/2019 DATE OF DISCHARGE: 05/15/2019 HISTORY: A 33-year-old G4, P3 female presents at 39-1/7 weeks gestation with early labor. She intended upon section for delivery due to history of shoulder dystocia and large for gestational age infant in prior . course was significant for thrombocytopenia. She had been on steroids in late in order to improve her platelet count. HOSPITAL COURSE: On 05/12/2019, the patient was diagnosed in labor. The decision was made to proceed with section as planned. Her platelet count on admission was 61,000. On 05/12/2019, she underwent primary low transverse section and bilateral tubal ligation. The procedure was without complication. Her postoperative course was unremarkable. She had adequate return of bladder and bowel function. Postoperative hemoglobin was 10.3 g/dL. On postoperative day #3 she was deemed stable for discharge. ADMISSION DIAGNOSES: 1. , term. 2. Labor. DISCHARGE DIAGNOSIS: Delivered. PROCEDURES; 1. Primary section. 2. Bilateral tubal ligation. DISPOSITION: The patient will follow up with Dr. Gandara in two weeks. Instructions were reviewed.
== END 2019-05-15 12:00 | disposition home or self-care (01) | DRG 540 ==
LOC: M LDO 17:41 → M LDI 20:22 → M OBS 05-13 00:12
PROVIDERS: ADMIT Obstetrics & Gynecology; ATTEND Obstetrics & Gynecology
PROC: 0UL70DZ Occlusion of Bilateral Fallopian Tubes with Intraluminal Device, Open Approach (ICD-10-PCS; 2019-05-12)
PROC: 10D00Z1 Extraction of Products of Conception, Low, Open Approach (ICD-10-PCS; principal; 2019-05-12 22:27)
DX: O99.12 Other diseases of the blood and blood-forming organs and certain disorders involving the immune mechanism complicating childbirth (principal); D69.6 Thrombocytopenia, unspecified; Z37.0 Single live birth; Z3A.39 39 weeks gestation of pregnancy; Z30.2 Encounter for sterilization; Z87.59 Personal history of other complications of pregnancy, childbirth and the puerperium

== ENCOUNTER → 2019-10-21 | Outpatient (CLI) | payer OTHER ==
[~2019-10-21] MED LIST changes: +IBUP80TA PO; +NORC1TAB7 PO
--- NOTE | 2019-10-21 17:49 | REP ---
KNEE: REASON: Knee pain. FINDINGS: The compartments are symmetric and relatively well maintained. There is no acute fracture or destructive osseous lesion. Electronically Signed by Julián Rodríguez DO 10/22/2019 11:13 A
== END ==
LOC: M WUC 15:35
PROVIDERS: ATTEND Physician Assistant
DX: M25.561 Pain in right knee (principal)

== ENCOUNTER → 2019-11-03 | Outpatient (REF) | payer OTHER ==
[2019-11-03 17:05] LABS: CHLAMYDIA DNA AMPLIFICATION NEGATIVE (NEGATIVE); GC DNA AMPLIFICATION NEGATIVE (NEGATIVE)
== END ==
LOC: M SFHCWAGY 15:17
PROVIDERS: ATTEND Advanced Practice Midwife
DX: B37.3 Candidiasis of vulva and vagina (principal)

== ENCOUNTER 2019-12-16 13:45 | Outpatient (RCR) | payer OTHER | END 2019-12-17 | LOC: M PT 13:45 | PROVIDERS: ATTEND Advanced Practice Midwife | DX: N39.3 Stress incontinence (female) (male) (principal) ==

== ENCOUNTER → 2020-02-03 | Outpatient (CLI) | payer OTHER ==
--- NOTE | 2020-02-17 09:05 | REP ---
LUMBOSACRAL SPINE SERIES: CLINICAL: Lower back pain extending to the right lower extremity. TECHNIQUE: AP, lateral, bilateral oblique, flexion/extension and coned down views of the lumbosacral spine. FINDINGS: Alignment and lordosis maintained. No acute fracture/compression injury or subluxation. Oblique views are normal and without spondylolysis. Disc spaces are normal for age. IMPRESSION: Normal complete lumbosacral spine radiograph series. MTDD
== END ==
LOC: M WUC 12:15
PROVIDERS: ATTEND Physician Assistant
DX: M54.41 Lumbago with sciatica, right side (principal)

== ENCOUNTER → 2020-04-25 | Outpatient (CLI) | payer SELFPAY | LOC: M LABSMTC 13:52 | PROVIDERS: ATTEND Pediatrics | DX: Z11.59 Encounter for screening for other viral diseases (principal) ==

== ENCOUNTER → 2020-06-09 | Outpatient (CLI) | payer OTHER ==
[2020-06-09 11:22] LABS: BASO % 0.8 % (0.0-1.0); EOS # 0.2 10^3/uL (0.0-0.5); EOS % 2.8 % (0.0-3.0); HEMATOCRIT 38.8 % (36.0-47.0); HEMOGLOBIN 12.6 g/dl (12.0-15.5); LYMPH # 1.1 10^3/uL (1.5-5.0); LYMPH % 20.1 % (24.0-44.0); MEAN CORPUSCULAR HEMOGLOBIN 28.6 pg (27.0-33.0); MEAN CORPUSCULAR HGB CONC 32.5 g/dl (32.0-36.5); MEAN CORPUSCULAR VOLUME 88.2 fl (80.0-96.0); MONO # 0.5 10^3/uL (0.0-0.8); NEUTROPHILS # 3.6 10^3/uL (1.5-8.5); NEUTROPHILS % 66.9 % (36.0-66.0); PLATELET COUNT, AUTOMATED 136 10^3/uL (150-450); WHITE BLOOD COUNT 5.3 10^3/uL (4.0-10.0)
[2020-06-09 12:10] LABS: ALBUMIN 3.9 GM/DL (3.2-5.2); ALT/SGPT 20 U/L (12-78); BILIRUBIN,TOTAL 0.4 MG/DL (0.2-1.0); BLOOD UREA NITROGEN 19 MG/DL (7-18); CALCIUM LEVEL 9.1 MG/DL (8.5-10.1); CARBON DIOXIDE LEVEL 27 MEQ/L (21-32); CHLORIDE LEVEL 105 MEQ/L (98-107); CREATININE FOR GFR 0.71 MG/DL (0.55-1.30); FOLATE 6.6 NG/ML; FREE T4 0.95 NG/DL (0.76-1.46); GLOMERULAR FILTRATION RATE > 60.0 (>60); GLUCOSE, FASTING 93 MG/DL (70-100); POTASSIUM SERUM 4.2 MEQ/L (3.5-5.1); SODIUM LEVEL 139 MEQ/L (136-145); THYROID PEROXIDASE ANTIBODY 392.5 U/ML (<60.0); TOTAL 25(OH) VITAMIN D 29.1 NG/ML (30.0-100.0); TOTAL PROTEIN 6.8 GM/DL (6.4-8.2); VITAMIN B12 LEVEL 503 PG/ML
[2020-06-21 23:07] LABS: THRYOGLOBULIN ANTIBODIES (ATA) 3.5 IU/mL (0.0-0.9); THYROGLOBULIN RIA 5.4 ng/mL (.)
== END ==
LOC: M PLALAB 09:23
PROVIDERS: ATTEND Physician Assistant
DX: R20.2 Paresthesia of skin (principal); E06.3 Autoimmune thyroiditis

== ENCOUNTER → 2021-06-09 | Outpatient (REF) | payer OTHER ==
[2021-06-09 18:31] LABS: APPEARANCE, URINE HAZY (CLEAR); BACTERIA, URINE AUTO 2+ (NEGATIVE); BILIRUBIN, URINE AUTO NEGATIVE (NEGATIVE); BLOOD, URINE BLOOD NEGATIVE (NEGATIVE); CALCIUM OXALATE CRYSTALS SMALL; COLOR, URINE YELLOW (YELLOW); GLUCOSE, URINE (UA) AUTO NEGATIVE (NEGATIVE); KETONE, URINE AUTO NEGATIVE (NEGATIVE); LEUKOCYTE ESTERASE, URINE AUTO 3+ (NEGATIVE); MUCUS, URINE SMALL (NEGATIVE); NITRITE, URINE AUTO NEGATIVE (NEGATIVE); PROTEIN, URINE AUTO NEGATIVE (NEGATIVE); RBC, URINE AUTO 0 /HPF (0-3); SPECIFIC GRAVITY URINE AUTO 1.006 (1.002-1.035); SQUAMOUS EPITHELIAL CELL UR AU 3 /HPF (0-6); UROBILINOGEN, URINE AUTO 0.2 mg/dL (0.0-2.0); WBC, URINE AUTO 2 /HPF (0-3)
== END ==
LOC: M LAB REF 17:52
PROVIDERS: ATTEND Physician Assistant Medical
DX: R30.0 Dysuria (principal)

== ENCOUNTER → 2021-06-21 | Outpatient (CLI) | payer OTHER ==
[2021-06-21 13:20] LABS: BASO # 0.1 10^3/uL (0.0-0.2); BASO % 1.1 % (0.0-1.0); EOS # 0.2 10^3/uL (0.0-0.5); EOS % 3.5 % (0.0-3.0); HEMATOCRIT 40.5 % (36.0-47.0); HEMOGLOBIN 13.4 g/dl (12.0-15.5); LYMPH # 0.9 10^3/uL (1.5-5.0); LYMPH % 15.1 % (24.0-44.0); MEAN CORPUSCULAR HEMOGLOBIN 29.8 pg (27.0-33.0); MEAN CORPUSCULAR HGB CONC 33.1 g/dl (32.0-36.5); MONO # 0.6 10^3/uL (0.0-0.8); NEUTROPHILS % 69.9 % (36.0-66.0); PLATELET COUNT, AUTOMATED 143 10^3/uL (150-450); WHITE BLOOD COUNT 5.7 10^3/uL (4.0-10.0)
[2021-06-21 14:02] LABS: FREE T4 1.03 NG/DL (0.76-1.46); PERCENT SATURATION 16.8 % (13.2-45.0); THYROID STIMULATING HORMONE 1.83 uIU/ML (0.358-3.740)
[2021-06-22 12:36] LABS: THYROID PEROXIDASE ANTIBODY 648.1 U/ML (<60.0)
== END ==
LOC: M PLALAB 10:31
PROVIDERS: ATTEND Family Medicine
DX: E06.3 Autoimmune thyroiditis (principal)

== ENCOUNTER → 2022-01-30 | Outpatient (CLI) | payer OTHER ==
[2022-01-30 13:58] LABS: BASO # 0.1 10^3/uL (0.0-0.2); BASO % 0.8 % (0.0-1.0); EOS # 0.2 10^3/uL (0.0-0.5); EOS % 2.5 % (0.0-3.0); HEMATOCRIT 41.4 % (36.0-47.0); HEMOGLOBIN 13.6 g/dl (12.0-15.5); LYMPH % 17.2 % (24.0-44.0); MEAN CORPUSCULAR HEMOGLOBIN 30.4 pg (27.0-33.0); MEAN CORPUSCULAR HGB CONC 32.9 g/dl (32.0-36.5); MEAN CORPUSCULAR VOLUME 92.4 fl (80.0-96.0); MONO # 0.5 10^3/uL (0.0-0.8); MONO % 7.9 % (2.0-8.0); NEUTROPHILS # 4.3 10^3/uL (1.5-8.5); NEUTROPHILS % 71.4 % (36.0-66.0); PLATELET COUNT, AUTOMATED 151 10^3/uL (150-450); RED BLOOD COUNT 4.48 10^6/uL (4.00-5.40); WHITE BLOOD COUNT 6.1 10^3/uL (4.0-10.0)
[2022-01-30 15:06] LABS: ALT/SGPT 21 U/L (12-78); BILIRUBIN,TOTAL 0.5 MG/DL (0.2-1.0); BLOOD UREA NITROGEN 10 MG/DL (7-18); CALCIUM LEVEL 9.6 MG/DL (8.5-10.1); CARBON DIOXIDE LEVEL 30 MEQ/L (21-32); CHLORIDE LEVEL 103 MEQ/L (98-107); CREATININE FOR GFR 0.69 MG/DL (0.55-1.30); FERRITIN 27 NG/ML (8-252); FREE T3 3.5 PG/ML (2.2-4.0); FREE T4 0.98 NG/DL (0.76-1.46); GLOMERULAR FILTRATION RATE > 60.0 (>60); GLUCOSE, FASTING 82 MG/DL (70-100); IRON (FE) 118 UG/DL (50-170); PERCENT SATURATION 33.4 % (13.2-45.0); POTASSIUM SERUM 4.7 MEQ/L (3.5-5.1); SODIUM LEVEL 137 MEQ/L (136-145); TOTAL IRON BINDING CAPACITY 353 UG/DL (250-450); TOTAL PROTEIN 7.2 GM/DL (6.4-8.2)
[2022-01-30 15:33] LABS: TOTAL 25(OH) VITAMIN D 57.9 NG/ML (30.0-100.0); VITAMIN B12 LEVEL 1056 PG/ML
== END ==
LOC: M PLALAB 10:31
PROVIDERS: ATTEND Physician Assistant
DX: Z13.29 Encounter for screening for other suspected endocrine disorder (principal)

== ENCOUNTER → 2022-02-20 | Outpatient (REF) | payer OTHER | LOC: M PLALAB 16:17 | PROVIDERS: ATTEND Nurse Practitioner Family | DX: Z12.4 Encounter for screening for malignant neoplasm of cervix (principal) ==

== ENCOUNTER → 2022-04-03 | Outpatient (CLI) | payer OTHER | LOC: M WHC 10:05 | PROVIDERS: ATTEND Nurse Practitioner Family | DX: R10.2 Pelvic and perineal pain (principal) ==

== ENCOUNTER → 2022-07-02 | Outpatient (CLI) | payer OTHER ==
[2022-07-02 15:20] LABS: HEMOGLOBIN 12.2 g/dl (12.0-15.5); MEAN CORPUSCULAR HEMOGLOBIN 29.9 pg (27.0-33.0); MEAN CORPUSCULAR HGB CONC 32.1 g/dl (32.0-36.5); MEAN CORPUSCULAR VOLUME 93.1 fl (80.0-96.0); PLATELET COUNT, AUTOMATED 118 10^3/uL (150-450); RED BLOOD COUNT 4.08 10^6/uL (4.00-5.40); WHITE BLOOD COUNT 4.6 10^3/uL (4.0-10.0)
[2022-07-02 15:28] LABS: THYROID STIMULATING HORMONE 1.147 uIU/ML (0.55-4.78)
[2022-07-02 15:33] LABS: FREE T4 1.18 NG/DL (0.89-1.76)
== END ==
LOC: M PLALAB 11:51
PROVIDERS: ATTEND Obstetrics & Gynecology
DX: N93.9 Abnormal uterine and vaginal bleeding, unspecified (principal)

== ENCOUNTER → 2022-07-02 | Outpatient (CLI) | payer OTHER ==
[2022-07-02 15:21] LABS: HEMATOCRIT 37.6 % (36.0-47.0); MEAN CORPUSCULAR HEMOGLOBIN 29.8 pg (27.0-33.0); MEAN CORPUSCULAR HGB CONC 31.9 g/dl (32.0-36.5); MEAN CORPUSCULAR VOLUME 93.3 fl (80.0-96.0); PLATELET COUNT, AUTOMATED 117 10^3/uL (150-450); RED BLOOD COUNT 4.03 10^6/uL (4.00-5.40); WHITE BLOOD COUNT 4.7 10^3/uL (4.0-10.0)
[2022-07-02 15:28] LABS: IRON (FE) 54 UG/DL (50-170); TOTAL IRON BINDING CAPACITY 359 UG/DL (250-425)
[2022-07-02 15:33] LABS: ALBUMIN 3.7 G/DL (3.2-5.2); ALKALINE PHOSPHATASE 89 U/L (46-116); ALT/SGPT 44 U/L (7.0-40); AST/SGOT 39 U/L (<34); BILIRUBIN,TOTAL 0.6 MG/DL (0.3-1.2); BLOOD UREA NITROGEN 14 MG/DL (9-23); CALCIUM LEVEL 8.9 MG/DL (8.5-10.1); CARBON DIOXIDE LEVEL 29 MMOL/L (20-31); CHLORIDE LEVEL 105 MMOL/L (98-107); CREATININE FOR GFR 0.65 MG/DL (0.55-1.30); FOLLICLE STIMULATING HORMONE 3.6 mIU/ML; GLOMERULAR FILTRATION RATE > 60.0 (>60); GLUCOSE, FASTING 104 MG/DL (60-100); LUTEINIZING HORMONE 2.9 mIU/ML; SODIUM LEVEL 139 MMOL/L (136-145); THYROID PEROXIDASE ANTIBODY 262 U/ML (<60.0); THYROID STIMULATING HORMONE 1.106 uIU/ML (0.55-4.78); TOTAL PROTEIN 6.6 G/DL (5.7-8.2)
[2022-07-02 19:06] LABS: ATYPICAL LYMPH 6 % (0-5); EOSINOPHILS 2 % (0-3); LYMPHOCYTES 34 % (16-44); MONOCYTES 6 % (0-5); NEUTROPHILS 52 % (28-66)
[2022-07-02 19:07] LABS: MICROCYTOSIS 1+; PLATELET ESTIMATE DECREASED (NORMAL)
== END ==
LOC: M PLALAB 11:49
PROVIDERS: ATTEND Nurse Practitioner Adult Health
DX: R53.83 Other fatigue (principal)

== ENCOUNTER → 2022-07-17 | Outpatient (CLI) | payer OTHER | LOC: M SLEEP HO 10:34 | PROVIDERS: ATTEND Nurse Practitioner Adult Health | DX: R51.9 Headache, unspecified (principal); R53.83 Other fatigue ==

== ENCOUNTER → 2023-03-31 | Outpatient (CLI) | payer OTHER, SELFPAY ==
[2023-03-31 13:49] LABS: EOS # 0.1 10^3/uL (0.0-0.5); EOS % 1.7 % (0.0-3.0); HEMATOCRIT 40.4 % (36.0-47.0); LYMPH % 24.2 % (24.0-44.0); MEAN CORPUSCULAR HEMOGLOBIN 28.8 pg (27.0-33.0); MEAN CORPUSCULAR HGB CONC 32.2 g/dl (32.0-36.5); MEAN CORPUSCULAR VOLUME 89.6 fl (80.0-96.0); MONO # 0.5 10^3/uL (0.0-0.8); MONO % 12.1 % (2.0-8.0); NEUTROPHILS # 2.6 10^3/uL (1.5-8.5); PLATELET COUNT, AUTOMATED 132 10^3/uL (150-450); RED BLOOD COUNT 4.51 10^6/uL (4.00-5.40); WHITE BLOOD COUNT 4.2 10^3/uL (4.0-10.0)
[2023-03-31 14:22] LABS: ALBUMIN 3.9 G/DL (3.2-5.2); ALKALINE PHOSPHATASE 68 U/L (46-116); ALT/SGPT 17 U/L (7.0-40); AST/SGOT 17 U/L (<34); BILIRUBIN,TOTAL 0.5 MG/DL (0.3-1.2); BLOOD UREA NITROGEN 12 MG/DL (9-23); CALCIUM LEVEL 9.1 MG/DL (8.5-10.1); CARBON DIOXIDE LEVEL 29 MMOL/L (20-31); CHLORIDE LEVEL 106 MMOL/L (98-107); CHOLESTEROL LEVEL 161 MG/DL (<200); CHOLESTEROL RISK RATIO 3.36 (<5); GLOMERULAR FILTRATION RATE > 60.0 (>60); GLUCOSE, FASTING 92 MG/DL (60-100); HDL CHOLESTEROL 47.8 MG/DL (>40); LDL CHOLESTEROL 103.2 MG/DL (<100); NON-HDL-C 113.2 MG/DL; POTASSIUM SERUM 4.8 MMOL/L (3.5-5.1); SODIUM LEVEL 141 MMOL/L (136-145); THYROID STIMULATING HORMONE 1.389 uIU/ML (0.55-4.78); TOTAL PROTEIN 6.8 G/DL (5.7-8.2); TRIGLYCERIDES LEVEL 50 MG/DL (<150)
[2023-03-31 14:23] LABS: FREE T4 1.08 NG/DL (0.89-1.76)
== END ==
LOC: M PLALAB 10:12
PROVIDERS: ATTEND Family Medicine
DX: Z13.29 Encounter for screening for other suspected endocrine disorder (principal); D69.6 Thrombocytopenia, unspecified

== ENCOUNTER → 2023-07-30 | Outpatient (CLI) | payer OTHER ==
[~2023-07-30] MED LIST changes: +DULO1CAP5
== END ==
LOC: M RAD 11:15
PROVIDERS: ATTEND Internal Medicine Hematology & Oncology
DX: D69.6 Thrombocytopenia, unspecified (principal)

== ENCOUNTER → 2024-03-16 | Outpatient (CLI) | payer OTHER ==
[~2024-03-16] MED LIST changes: +ISOVUE-370 76% 100ML VIAL As Ordered ONE; +THERTAB52 PO
== END ==
LOC: M RAD 08:35
PROVIDERS: ATTEND Nurse Practitioner Family
DX: N20.0 Calculus of kidney (principal)
CPT/HCPCS: 74178; Q9967

== ENCOUNTER → 2024-04-28 | Outpatient (CLI) | payer OTHER ==
[~2024-04-28] MED LIST changes: -ISOVUE-370 76% 100ML VIAL As Ordered ONE
[2024-04-28 14:56] LABS: BASO # 0.1 10^3/uL (0.0-0.2); BASO % 0.9 % (0.0-1.0); EOS # 0.1 10^3/uL (0.0-0.5); EOS % 2.3 % (0.0-3.0); HEMATOCRIT 40.4 % (36.0-47.0); HEMOGLOBIN 13.7 g/dl (12.0-15.5); LYMPH # 1.4 10^3/uL (1.5-5.0); LYMPH % 23.6 % (24.0-44.0); MEAN CORPUSCULAR HEMOGLOBIN 31.3 pg (27.0-33.0); MEAN CORPUSCULAR HGB CONC 33.9 g/dl (32.0-36.5); MEAN CORPUSCULAR VOLUME 92.2 fl (80.0-96.0); MONO # 0.5 10^3/uL (0.0-0.8); MONO % 9.1 % (2.0-8.0); NEUTROPHILS # 3.7 10^3/uL (1.5-8.5); NEUTROPHILS % 63.9 % (36.0-66.0); PLATELET COUNT, AUTOMATED 157 10^3/uL (150-450); RED BLOOD COUNT 4.38 10^6/uL (4.00-5.40); WHITE BLOOD COUNT 5.7 10^3/uL (4.0-10.0)
[2024-04-28 15:30] LABS: ALKALINE PHOSPHATASE 71 U/L (35-104); ALT/SGPT 15 U/L (7.0-40); AST/SGOT 17 U/L (<34); BILIRUBIN,TOTAL 0.5 MG/DL (0.3-1.2); BLOOD UREA NITROGEN 11 MG/DL (9-23); CARBON DIOXIDE LEVEL 28 MMOL/L (20-31); CHLORIDE LEVEL 103 MMOL/L (98-107); CHOLESTEROL LEVEL 174 MG/DL (<200); CREATININE FOR GFR 0.59 MG/DL (0.55-1.30); GLOMERULAR FILTRATION RATE > 60.0 (>60); GLUCOSE, FASTING 90 MG/DL (60-100); LDL CHOLESTEROL 118.2 MG/DL (<100); POTASSIUM SERUM 4.7 MMOL/L (3.5-5.1); SODIUM LEVEL 139 MMOL/L (136-145); THYROID STIMULATING HORMONE 1.033 uIU/ML (0.55-4.78); TRIGLYCERIDES LEVEL 44 MG/DL (<150)
[2024-04-28 15:31] LABS: FREE T4 1.15 NG/DL (0.89-1.76)
== END ==
LOC: M PLAIMG 11:15 → M PLALAB 11:15
PROVIDERS: ATTEND Family Medicine
DX: Z13.0 Encounter for screening for diseases of the blood and blood-forming organs and certain disorders involving the immune mechanism (principal)

== ENCOUNTER → 2025-04-18 | Outpatient (CLI) | payer OTHER ==
[~2025-04-18] MED LIST changes: +PRED-1142 PO; -PRED1TABL PO
== END ==
LOC: M RAD 07:41
PROVIDERS: ATTEND Specialist
DX: D69.6 Thrombocytopenia, unspecified (principal); R16.1 Splenomegaly, not elsewhere classified

== ENCOUNTER → 2025-04-20 | Outpatient (CLI) | payer OTHER ==
[2025-04-20 10:21] LABS: BASO # 0.0 10^3/uL (0.0-0.2); BASO % 0.5 % (0.0-1.0); EOS # 0.1 10^3/uL (0.0-0.5); EOS % 1.5 % (0.0-3.0); LYMPH # 1.0 10^3/uL (1.5-5.0); LYMPH % 12.4 % (24.0-44.0); MONO # 0.5 10^3/uL (0.0-0.8); MONO % 6.0 % (2.0-8.0); NEUTROPHILS # 6.3 10^3/uL (1.5-8.5); NEUTROPHILS % 79.3 % (36.0-66.0); PLATELET COUNT, AUTOMATED 155 10^3/uL (150-450)
[2025-04-20 10:52] LABS: ALT/SGPT 17 U/L (7.0-40); AST/SGOT 20 U/L (<34); CALCIUM LEVEL 9.2 MG/DL (8.5-10.1); CARBON DIOXIDE LEVEL 30 MMOL/L (20-31); CHLORIDE LEVEL 103 MMOL/L (98-107); CREATININE FOR GFR 0.65 MG/DL (0.55-1.30); GLOMERULAR FILTRATION RATE > 90.0 (>58); POTASSIUM SERUM 4.5 MMOL/L (3.5-5.1); SODIUM LEVEL 142 MMOL/L (136-145)
== END ==
LOC: M LAB 09:39
PROVIDERS: ATTEND Specialist
DX: D69.6 Thrombocytopenia, unspecified (principal); N76.0 Acute vaginitis

== ENCOUNTER → 2025-04-20 | Outpatient (REF) | payer OTHER | LOC: M LAB REF 17:33 | PROVIDERS: ATTEND Family Medicine | DX: N76.0 Acute vaginitis (principal) ==